=== PATIENT | female | born 1950 | race Caucasian/White ===

== ENCOUNTER 2019-09-05 03:48 | Emergency (ER) | payer MEDICARE ==
[~2019-09-05] VITALS: Ht 165 cm; Wt 61.3 kg
[~2019-09-05 03:48] MED LIST: CALC-793 PO; LISI20TA PO; META800T5 PO; MPR22T TP; NAPR-243 PO; NF-PREM2.5 PO; OMG1KC PO; PRAV40TA PO; SULF1TAB38 PO
[2019-09-05] MEDS ORDERED: methylPREDNISolone 125 MG (Solu-MEDROL) VIAL IV STA (03:56)
[2019-09-05] MEDS ORDERED: diphenhydrAMINE 50 MG/ML INJ (BENADRYL) IV STA (03:56)
[2019-09-05] MEDS ORDERED: FAMOTIDINE 20MG/2ML IV (PEPCID) IV STA (03:56)
[2019-09-05] MEDS ORDERED: EPINEPHrine INJECTION 1 MG/ML AMP IM ONE ×2 (04:00→05:15)
[2019-09-05 04:04] LABS: BASOPHILS % (AUTO) 1 % (0-10); EOSINOPHILS # (AUTO) 0.1 10^3/uL (0.0-0.3); EOSINOPHILS % (AUTO) 2 % (0-10); HEMATOCRIT 40 % (35-52); HEMOGLOBIN 13.2 G/DL (11.5-16.0); LYMPHOCYTES # (AUTO) 2.6 X 10^3 (1.0-4.0); LYMPHOCYTES % (AUTO) 32 % (12-44); MEAN CORPUSCULAR HEMOGLOBIN 30 PG (25-34); MEAN CORPUSCULAR HGB CONC 33 G/DL (32-36); MEAN CORPUSCULAR VOLUME 89 FL (80-99); MONOCYTES # (AUTO) 0.9 X 10^3 (0.0-1.0); MONOCYTES % (AUTO) 11 % (0-12); NEUTROPHILS # (AUTO) 4.5 X 10^3 (1.8-7.8); NEUTROPHILS % (AUTO) 55 % (42-75); PLATELET COUNT 356 10^3/uL (130-400); WHITE BLOOD COUNT 8.1 10^3/uL (4.3-11.0)
--- NOTE | 2019-09-05 04:25 | ED EENT ---
History of Present Illness General Chief Complaint: Allergic Reaction Stated Complaint: SWOLLEN TONGUE Source: patient History of Present Illness Date Seen by Provider: Sep 05, 2019 Time Seen by Provider: 03:53 Initial Comments PT ARRIVES VIA POV FROM HOME C/O SWELLING TO RIGHT SIDE OF TONGUE --NOTICED IT AT 0130 WHEN SHE GOT UP TO GO TO THE BATHROOM WAS FINE WHEN SHE WENT TO BED. HAVING SOME DIFFICULTY SWALLOWING WATER, DUE TO SWELLING NO SWELLING TO LIPS, AND DENIES ANY SWELLING OR TIGHTNESS IN HER THROAT NO SHORTNESS OF BREATH OR WHEEZING NO CHEST PAIN OR TIGHTNESS NO RASH OR ITCHING ANYWHERE. NO SWELLING ANYWHERE ELSE ON BODY STATES 2 DAYS AGO, SHE BIT THE INSIDE OF HER LEFT CHEEK WHEN SHE WAS EATING, AND THE LEFT SIDE OF HER FACE/JAW / CHEEK AND PART OF LEFT SIDE OF HER LIPS WERE SWOLLEN AT THAT TIME, AND THEN IT ALL WENT DOWN THEN YESTERDAY SHE BIT THE TIP OF HER TONGUE ON THE RIGHT SIDE WHEN SHE WAS EATING THOUGHT HER TONGUE WAS A LITTLE SWOLLEN AT THAT TIME, BUT THEN IT GOT BETTER HAS NOT TAKEN ANYTHING FOR SYMPTOMS AT ANY TIME NO HISTORY OF SIMILAR NO PAIN TO TONGUE OR FACE NO NUMBNESS OR TINGLING OR MOTOR DEFICITS HAS BEEN ON LISINOPRIL FOR YEARS TAKES ESTRADIOL + PROGESTERONE TAKES OTC VITAMINS/SUPPLEMENTS NONE OF HER MEDICATIONS ARE NEW PCP: JACKIE LOPEZ Allergies and Home Medications Allergies Coded Allergies: Thiopental (Unverified Allergy, Intermediate, SEVERE NAUSEA/VOMITING, 11/16/06) Home Medications Calcium/Vitamin D 1 Tab Tablet, 1 CAP PO DAILY, (Reported) Estrog Conj/Medryoxyprog Acet 1 Tab Tab, 1 TAB PO DAILY, (Reported) Lisinopril 20 Mg Tablet, 20 MG PO DAILY, (Reported) Metaxalone 800 Mg Tablet, 800 MG PO TID FOR MUSCLE SPASMS Prescribed by: ARMANDO MONTEJO on 03/31/1224 Mupirocin 22 Gm Tube, 0 TP TID APPLY TO SPARINGLY TO AFFECTED AREA(S) Prescribed by: ARMANDO MONTEJO on 03/31/1225 Naproxen 500 Mg Tablet, 1 EACH PO TID PRN FOR PAIN Prescribed by: ARMANDO MONTEJO on 03/31/1225 Norlina 3 Polyunsat Fatty Acids 1,000 Mg Cap, 1,000 MG PO DAILY, (Reported) Pravastatin Sodium 40 Mg Tablet, 40 MG PO DAILY, (Reported) Prednisone 20 Mg Tab, 40 MG PO DAILY Prescribed by: ARMANDO MONTEJO on 09/05/19 0430 Trimethoprim/Sulfamethoxazole 1 Ea Tablet, 1 EA PO BID FOR INFECTION Prescribed by: ARMANDO MONTEJO on 03/31/12 0026 Patient Home Medication List Home Medication List Reviewed: Yes Review of Systems Review of Systems Constitutional: no symptoms reported; No chills, No diaphoresis, No dizziness, No fever Eyes: No Symptoms Reported Ears: No Symptoms Reported Nose: no symptoms reported Mouth: see HPI; denies pain; swelling Throat: denies pain, denies neck stiffness, denies hoarse; muffled; denies painful swallowing; difficulty with fluids Respiratory: no symptoms reported; No cough, No short of breath, No wheezing Cardiovascular: no symptoms reported; No chest pain, No edema, No palpitations, No syncope Gastrointestinal: no symptoms reported Past [id number]-Hhvldk-Uzbjfw Hx Patient Social History Recent Foreign Travel: No Contact w/Someone Who Travel: No Recent Infectious Disease Expo: No Past Medical History Surgeries: Yes (LUMBAR SPINE SURGERY; BILATERAL SHOULDER SURGERY; CH OLECYSTECTOMY) Orthopedic Respiratory: No Cardiac: Yes Hypertension 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 oz. kg; 22.00 BMI Method:Stated General Appearance: WD/WN, no apparent distress, other (SMILING, TALKATIVE, VOICE SLIGHTLY MUFFLED. DOES NOT APPEAR TO BE IN ANY DISCOMFORT OR DISTRESS) Eyes: bilateral eye normal inspection Nose: normal inspection Mouth/Throat: No excessive drooling, No mandibular swelling, No maxillary swelling; voice changes (VOICE MILDLY MUFFLED), other (MODERATE EDEMA TO RIGHT HALF OF TONGUE. --DOES NOT TOUCH ROOF OF MOUTH OR EXTEND BEYOND LIPS. NO SWELLING TO LIPS. PT IS ABLE TO HANDLE SECRETIONS. NO OBVIOUS EVIDENCE OF INJURY TO TONGUE OR LEFT CHEEK WHERE SHE REPORTED SHE HAS RECENTLY BITTEN. ) Neck: non-tender, full range of motion, supple, normal inspection Cardiovascular: regular rate, rhythm, no edema, no JVD, no murmur Respiratory: normal breath sounds, no respiratory distress, no accessory muscle use Neurologic/Psychiatric: patient relations specialist II-XII nml as tested, no motor/sensory deficits, alert, normal mood/affect, oriented x 3 Skin: normal color, warm/dry; No rash Progress/Results/Core Measures Results/Orders Lab Results Laboratory Tests Test 09/05/19 03:57 Range/Units White Blood Count 8.1 4.3-11.0 10^3/uL Red Blood Count 4.43 4.35-5.85 10^6/uL Hemoglobin 13.2 11.5-16.0 G/DL Hematocrit 40 35-52 % Mean Corpuscular Volume 89 80-99 FL Mean Corpuscular Hemoglobin 30 25-34 PG Mean Corpuscular Hemoglobin Concent 33 32-36 G/DL Red Cell Distribution Width 13.0 10.0-14.5 % Platelet Count 356 130-400 10^3/uL Mean Platelet Volume 10.0 7.4-10.4 FL Neutrophils (%) (Auto) 55 42-75 % Lymphocytes (%) (Auto) 32 12-44 % Monocytes (%) (Auto) 11 0-12 % Eosinophils (%) (Auto) 2 0-10 % Basophils (%) (Auto) 1 0-10 % Neutrophils # (Auto) 4.5 1.8-7.8 X 10^3 Lymphocytes # (Auto) 2.6 1.0-4.0 X 10^3 Monocytes # (Auto) 0.9 0.0-1.0 X 10^3 Eosinophils # (Auto) 0.1 0.0-0.3 10^3/uL Basophils # (Auto) 0.0 0.0-0.1 10^3/uL Sodium Level 142 135-145 MMOL/L Potassium Level 3.7 3.6-5.0 MMOL/L Chloride Level 108 H 98-107 MMOL/L Carbon Dioxide Level 23 21-32 MMOL/L Anion Gap 11 5-14 MMOL/L Blood Urea Nitrogen 12 7-18 MG/DL Creatinine 0.81 0.60-1.30 MG/DL Estimat Glomerular Filtration Rate > 60 BUN/Creatinine Ratio 15 Glucose Level 107 H 70-105 MG/DL Calcium Level 9.4 8.5-10.1 MG/DL Corrected Calcium 9.0 8.5-10.1 MG/DL Total Bilirubin 0.3 0.1-1.0 MG/DL Aspartate Amino Transf (AST/SGOT) 20 5-34 U/L Alanine Aminotransferase (ALT/SGPT) 15 0-55 U/L Alkaline Phosphatase 88 40-136 U/L Total Protein 7.9 6.4-8.2 GM/DL Albumin 4.5 3.2-4.5 GM/DL My Orders Orders - ARMANDO MONTEJO DO Ed Iv/Invasive Line Start (09/05/19 03:56) Monitor-Rhythm Ecg Trace Only (09/05/19 03:56) Cbc With Automated Diff (09/05/19 03:56) Comprehensive Metabolic Panel (09/05/19 03:56) Famotidine Injection (Pepcid Injection) (09/05/19 03:56) Diphenhydramine Injection (Benadryl Inje (09/05/19 03:56) Methylprednisolone Sod Succ (Solu-Medrol (09/05/19 03:56) Epinephrine 1 Mg Injection (Adrenalin I (09/05/19 04:00) Epinephrine 1 Mg Injection (Adrenalin I (09/05/19 05:15) Famotidine Injection (Pepcid Injection) (09/05/19 05:15) Methylprednisolone Sod Succ (Solu-Medrol (09/05/19 05:15) Diphenhydramine Injection (Benadryl Inje (09/05/19 05:15) Ondansetron Injection (Zofran Injectio (09/05/19 05:45) Medications Given in ED Current Medications Medications Dose Ordered Sig/Jaylene Route Start Time Stop Time Status Last Admin Dose Admin Diphenhydramine HCl 50 mg ONCE ONCE IVP 09/05/19 05:15 09/05/19 05:16 DC 09/05/19 05:21 50 MG Epinephrine HCl 0.3 mg ONCE ONCE IM 09/05/19 04:00 09/05/19 04:01 DC 09/05/19 04:17 0.3 MG Epinephrine HCl 0.3 mg ONCE ONCE IM 09/05/19 05:15 09/05/19 05:16 DC 09/05/19 05:22 0.3 MG Famotidine 40 mg ONCE ONCE IVP 09/05/19 05:15 09/05/19 05:16 DC 09/05/19 05:22 40 MG Methylprednisolone Sodium Succinate 125 mg ONCE ONCE IVP 09/05/19 05:15 09/05/19 05:16 DC 09/05/19 05:22 125 MG Ondansetron HCl 8 mg ONCE ONCE IVP 09/05/19 05:45 09/05/19 05:46 DC 09/05/19 05:36 8 MG Vital Signs/I&O 09/05/19 09/05/19 03:55 06:28 Temp 36.1 Pulse 63 60 Resp 13 15 B/P (MAP) 191/92 (125) 164/75 Pulse Ox 98 99 O2 Delivery Room Air Room Air Blood Pressure Mean: 125 Progress Progress Note : Progress Note GIVEN EPINEPHRINE, SOLU-MEDROL, PEPCID, BENADRYL. MODERATE IMPROVEMENT IN SWELLING, BUT STILL HAS SIGNIFICANT SUB LINGUAL EDEMA REPEAT DOSES OF MEDICATIONS GIVEN. PT DID BECOME NAUSEATED AND VOMITED X 1 WITH THOSE MEDICATIONS. GIVEN ZOFRAN WITH RELIEF OF NAUSEA. PT TOLERATING LIQUIDS WITHOUT DIFFICULTY. VOICE IS LESS MUFFLED AFTER SECOND DOSE OF MEDICATIONS, PT HAD CONTINUED DECREASE IN SWELLING OF TONGUE AND SUBLINGUAL TISSUES. VOICE IS FAIRLY NORMAL NOW PT FEELS COMFORTABLE GOING HOME . \\ PT ADVISED TO STOP LISINOPRIL AND FOLLOW UP WITH HER DR TODAY OR TOMORROW FOR FURTHER CARE , AND RETURN TO ER IF SYMPTOMS WORSEN Departure Impression Primary Impression: ANGIOEDEMA OF TONGUE Additional Impressions: SUSPECT REACTION TO DANYELLE INHIBITOR--LISINOPRIL HTN (hypertension) Disposition: 01 HOME, SELF-CARE Condition: Improved Departure-Patient Inst. Referrals: NAVA HALLMAN MD (PCP) Primary Care Physician Patient Instructions: Angioedema (DC), Drug Allergy Add. Discharge Instructions: STOP LISNIOPRIL TAKE BENADRYL 50 MG EVERY 4 HOURS NEEDED TAKE PEPCID 40 MG TWICE A DAY NEEDED LOT SOF CLEAR LIQUIDS FOLLOW UP WITH DR. HALLMAN TODAY OR TOMORROW FOR FURTHER CARE, RETURN TO ER IF WORSE All discharge instructions reviewed with patient and/or family. Voiced understanding. Scripts Prednisone (Prednisone) 20 Mg Tab 40 MG PO DAILY, #6 TAB Prov: ARMANDO MONTEJO DO 09/05/19 ARMANDO MONTEJO DO Sep 05, 2019 04:25
[2019-09-05] MEDS ORDERED: PRD20T PO (04:30)
[2019-09-05 04:35] LABS: ALANINE AMINOTRANSFERASE 15 U/L (0-55); ALBUMIN 4.5 GM/DL (3.2-4.5); ALKALINE PHOSPHATASE 88 U/L (40-136); BILIRUBIN,TOTAL 0.3 MG/DL (0.1-1.0); BUN/CREATININE RATIO 15; CALCIUM 9.4 MG/DL (8.5-10.1); CARBON DIOXIDE 23 MMOL/L (21-32); CHLORIDE 108 MMOL/L (98-107); CREATININE SERUM 0.81 MG/DL (0.60-1.30); GFR ESTIMATED > 60; GLUCOSE 107 MG/DL (70-105); POTASSIUM 3.7 MMOL/L (3.6-5.0); SODIUM 142 MMOL/L (135-145); TOTAL PROTEIN 7.9 GM/DL (6.4-8.2)
[2019-09-05] MEDS ORDERED: diphenhydrAMINE 50 MG/ML INJ (BENADRYL) IVP ONE (05:15)
[2019-09-05] MEDS ORDERED: methylPREDNISolone 125 MG (Solu-MEDROL) VIAL IVP ONE (05:15)
[2019-09-05] MEDS ORDERED: FAMOTIDINE 20MG/2ML IV (PEPCID) IVP ONE (05:15)
[2019-09-05] MEDS ORDERED: ONDANSETRON 4 MG/2 ML (SDV) Z0FRAN IVP ONE (05:45)
[2019-09-05 06:28] VITALS: BP 164/75
== END 2019-09-05 06:29 | disposition home or self-care (01) ==
LOC: EDUNIT# 03:48 → ER 03:50
DX: T78.3XXA Angioneurotic edema, initial encounter (principal); I10 Essential (primary) hypertension; Z88.8 Allergy status to other drugs, medicaments and biological substances; Z90.49 Acquired absence of other specified parts of digestive tract
CPT/HCPCS: 36415; 80053; 85025; 93041